=== PATIENT | female | born 1960 | race Caucasian/White ===

== ENCOUNTER 2017-07-22 13:04 | Outpatient (RCR) | payer BC, MEDICAID, SELFPAY ==
[2017-07-22 14:05] VITALS: BP 123/73; PULSE 72; RESP 24; TEMP 36.6; BMI 64.4
--- NOTE | 2017-07-22 14:49 | PCM.WC.HP ---
(1) Leg swelling Status: Chronic Current Visit: Yes Code(s): M79.89 - Other specified soft tissue disorders (2) Edema of both legs Status: Chronic Current Visit: Yes Code(s): R60.0 - Localized edema (3) Lymphedema of lower extremity Status: Chronic Current Visit: Yes Qualifiers: Laterality: bilateral Qualified Code(s): I89.0 - Lymphedema, not elsewhere classified Code(s): I89.0 - Lymphedema, not elsewhere classified (4) Morbid obesity with BMI of 60.0-69.9, adult Status: Chronic Current Visit: Yes Code(s): E66.01 - Morbid (severe) obesity due to excess calories; Z68.44 - Body mass index (BMI) 60.0-69.9, adult (5) Sleep apnea Status: Chronic Current Visit: No Code(s): G47.30 - Sleep apnea, unspecified (6) Limited mobility Status: Chronic Current Visit: Yes Code(s): Z74.09 - Other reduced mobility (7) COPD (chronic obstructive pulmonary disease) Status: Chronic Current Visit: No Qualifiers: COPD type: emphysema Code(s): J44.9 - Chronic obstructive pulmonary disease, unspecified (8) GERD (gastroesophageal reflux disease) Status: Chronic Current Visit: No Code(s): K21.9 - Gastro-esophageal reflux disease without esophagitis (9) Chronic venous insufficiency Status: Chronic Current Visit: Yes Code(s): I87.2 - Venous insufficiency (chronic) (peripheral) (10) Diabetes mellitus Status: Chronic Current Visit: No Qualifiers: Diabetes mellitus type: type 2 Code(s): E11.9 - Type 2 diabetes mellitus without complications (11) Hypertension Status: Chronic Current Visit: No Code(s): I10 - Essential (primary) hypertension (12) Hyperlipidemia Status: Chronic Current Visit: No Code(s): E78.5 - Hyperlipidemia, unspecified (13) Lipodermatosclerosis Status: Chronic Current Visit: Yes Code(s): I83.10 - Varicose veins of unspecified lower extremity with inflammation (14) Hyperpigmentation Status: Chronic Current Visit: Yes Code(s): L81.9 - Disorder of pigmentation, unspecified History of Present Illness Date of Service: 07/22/17 Chief Complaint: Chronic swelling, edema, and lymphedema of the lower extremities, with exudative drainage from the left distal lower extremity History of Wound: This is a morbidly obese, diabetic, 56-year-old female who presents with a history of chronic swelling, edema, and lymphedema in her lower extremities. The patient states that her presenting symptoms have been worse within the last 6 weeks. She has noted exudative drainage from a pinhole in her left lower extremity below the knee, described by the patient has dripping. She claims to sleep with her lower extremities elevated. However, her mobility and activity is extremely limited. She spends long hours each day and an idle sitting position. She is morbidly obese, with a BMI of 64.4, placing her in a class III category. She is attempting to lose weight, and is currently on medication as prescribed by her primary care physician. She claims to have lost 15 pounds within the last several months. She describes compression garments for her lower extremities, which consists of Velcro straps, likely something similar to CircAid garments. However, she has not been using these garments. Furthermore, she has mechanical compression pumps, which she also has not been using. The patient has multiple other medical problems, which will be listed below. She is currently in the midst of a prescription for Keflex, prescribed by her primary care physician, presumably for cellulitis of the lower extremities. Past Medical History Past Medical History: Chronic Problems Leg swelling (Chronic) Edema of both legs (Chronic) Lymphedema of lower extremity (Chronic) Morbid obesity with BMI of 60.0-69.9, adult (Chronic) Sleep apnea (Chronic) Limited mobility (Chronic) COPD (chronic obstructive pulmonary disease) (Chronic) GERD (gastroesophageal reflux disease) (Chronic) Chronic venous insufficiency (Chronic) Diabetes mellitus (Chronic) Hypertension (Chronic) Hyperlipidemia (Chronic) Lipodermatosclerosis (Chronic) Hyperpigmentation (Chronic) Past Medical History: The patient denies a history of myocardial infarction, congestive heart failure, cerebrovascular accident, cancer, renal disease, and thyroid disease. She suffers from morbid obesity. She has a history of sleep apnea, chronic obstructive pulmonary disease/emphysema, gastroesophageal reflux disease, venous insufficiency, diabetes mellitus, hypertension, and hyperlipidemia. Surgical History: - - Patient has had bilateral oophorectomies and hysterectomy. She has had cholecystectomy in the past, as well as appendectomy. Allergies/Adverse Reactions: Allergies albuterol Adverse Reaction (Verified 07/22/17 14:19) Unknown clindamycin Adverse Reaction (Verified 07/22/17 14:19) Unknown Sulfa (Sulfonamide Antibiotics) Adverse Reaction (Verified 07/22/17 14:19) Unknown theophylline Adverse Reaction (Verified 07/22/17 14:19) Unknown Home Medications: Ambulatory Orders Medication Instructions Recorded Acetaminophen [Non-Aspirin Extra 500 mg PO 07/22/17 Strength] Allopurinol 300 mg PO DAILY 07/22/17 Aspirin [Aspirin, Baby] 81 mg PO DAILY@0800 07/22/17 Atenolol [Tenormin (Beta Bernarda)] 100 mg PO DAILY 07/22/17 Baclofen 10 mg PO 07/22/17 Cephalexin [Keflex] 500 mg PO 07/22/17 Gabapentin [Neurontin] 100 mg PO DAILY 07/22/17 Ibuprofen 07/22/17 Lisinopril [Prinivil] 10 mg PO 07/22/17 Omeprazole [Prilosec] DAILY 07/22/17 Phentermine HCl 37.5 mg PO DAILY 07/22/17 Tiotropium [place] [Spiriva 18 MCG] 1 puff INHALATION DAILY 07/22/17 Triamcinolone Acetonide 15 gm TP 07/22/17 - Family History Maternal - - Patient's father at the age of 70 with a history of diabetes mellitus and heart disease. Patient's mother is living, age 78, and healthy, but for morbid obesity. Social History: The patient lives with HER-2 sisters and her mother. She is classified as disabled, and is unemployed. She is single. She quit smoking approximately 10 years ago. She denies use of alcohol. Lives: With Family Smoking Status: Former smoker Tobacco Use: Non-smoker Alcohol: None Drugs: None Review of Systems Constitutional: Denies: Chills, Fever, Weight Change Eyes: Denies: Pain, Vision Change HEENT: Denies: Difficulty Hearing, Difficulty Swallowing, Sinus Congestion Cardiovascular: Denies: Chest Pain, Palpitations Respiratory: Denies: Cough, Shortness of Breath Gastrointestinal: Denies: Diarrhea, Nausea, Vomiting Genitourinary: Denies: Dysuria, Hematuria Endocrine: Denies: Heat/ Cold Intolerance, Polydipsia, Polyuria Hematologic/ Lymphatic: Denies: Easy Bruising, Easy Bleeding - Physical Exam Vital Signs Temp Pulse Resp BP 98 F 72 24 H 123/73 H 07/22/17 14:05 07/22/17 14:05 07/22/17 14:05 07/22/17 14:05 General: Alert, Oriented x3, Cooperative, No apparent distress, Well developed, Well nourished, - - Patient is morbidly obese. HEENT: Atraumatic, PERRLA, EOMI, Normocephalic Oral: Moist Mucosa, No Gingival or Mucosal Lesions/ Ulcerations Neck: Supple, No JVD, Negative Carotid Bruits, No Nodes, No Nuchal Rigidity, Trachea Midline Lungs: Clear to auscultation, Normal air movement, No rhonchi, No wheeze, No rales Cardiovascular: Regular rate, Regular Rhythm, Normal S1, Normal S2, No murmurs Abdomen: Soft, Non Tender, Non-Distended, Obese - Morbidly obese Extremities: No clubbing, No cyanosis, No Calf Tenderness, - - Lower extremities are severely swollen, edematous, and with lymphedema bilaterally. There are no open wounds or ulcerations. There is no evidence of infection or cellulitis. Circumference measurements are documented elsewhere. Hyperpigmentation and lipodermatosclerosis are noted in the gaiter areas bilaterally. Wound Measurements and Assessment WC - Nurse 1 - General Ulcer Measurement Start: 07/22/17 13:38 Freq: Status: Active Protocol: Activity Type Activity Date Activity User E-Sign Co-Sign Detail Recorded Client Recorded Date Recorded By Document 07/22/17 14:05 [facility] [id number] 07/22/17 14:10 [facility] 07/22/17 14:05 Wound Center Nurse 1 [Ulcer Assessment Protocol: EVA.WD.LOC] #1- BLE EDEMA -Combined with other wound No -Date of Last Picture (Recall this 07/22/17 field) -Photo Taken Yes [Edema Assessment] -Lower Limb Edema Present Yes -Right Calf (cm) 48.5 -Right Ankle (cm) 27.5 -Left Calf (cm) 50.1 -Left Ankle (cm) 26.5 WC - Nurse 2 - General Ulcer CM Notes Start: 07/22/17 13:38 Freq: Status: Active Protocol: Activity Type Activity Date Activity User E-Sign Co-Sign Detail Recorded Client Recorded Date Recorded By Document 07/22/17 14:34 [id number] 07/22/17 14:46 07/22/17 14:34 Wound Center Nurse 2 [Procedure/Treatment] #1- BLE EDEMA -Time 14:34 -Correct Patient Yes -Correct Side, Site, Position Yes -Correct Procedure Yes -Procedure Performed No -Bleeding Controlled with NA [See Physician Procedure note for Specifics] Pain Scale: 0-10 Numeric [Pain] -Is Patient Pain Free? Yes Neurological: Cranial nerves II-XII grossly intact, Neuro grossly intact Psych/Mental Status: Normal Affect, Appropriate, Alert and oriented to time, place, person, mood and affect Debridement Note Post-Debridement Measurements/Treatment WC - Nurse 2 - General Ulcer CM Notes Start: 07/22/17 13:38 Freq: Status: Active Protocol: Activity Type Activity Date Activity User E-Sign Co-Sign Detail Recorded Client Recorded Date Recorded By Document 07/22/17 14:34 [id number] 07/22/17 14:46 07/22/17 14:34 Wound Center Nurse 2 #1- BLE EDEMA -Time 14:34 -Correct Patient Yes -Correct Side, Site, Position Yes -Correct Procedure Yes -Procedure Performed No -Bleeding Controlled with NA Pain Scale: 0-10 Numeric Is Patient Pain Free? Yes No debridement was completed today Assessment/Plan Active Problems Leg swelling (Chronic) Edema of both legs (Chronic) Lymphedema of lower extremity (Chronic) Morbid obesity with BMI of 60.0-69.9, adult (Chronic) Limited mobility (Chronic) Chronic venous insufficiency (Chronic) Lipodermatosclerosis (Chronic) Hyperpigmentation (Chronic) Assessment: This is a 56-year-old female with multiple medical problems, as detailed above. She presents with a long-standing history of chronic swelling, edema, and lymphedema in her lower extremities. In recent weeks, she was noted exudative drainage from the pores of the left lower extremity. She is morbidly obese. Her level of activity and mobility are extremely limited. She sits long hours each day. Her lack of activity is such that she is not recruiting the calf and foot muscle pumps necessary for eating venous return. Her swelling and edema appears to be related to her chronic dependency, morbid obesity, and lack of activity. Furthermore, despite the fact that the patient has compression garments and mechanical compression pumps, the patient has failed to use these devices. Plan: Patient has been advised to elevate her lower extremities as much as possible. Elevation is to be to heart level or higher, as much as possible, during sleeping hours as well as during the daytime. She has been advised to refrain from prolonged idle sitting. Activity has been encouraged. Weight loss has also been encouraged. Ultimately, we plan to implement some form of compression to the lower extremities. Initially, however, we are to obtain a venous duplex examination and ankle-brachial indices bilaterally. Once these results are known, we will implement some form of compression to the lower extremities. We are also to obtain routine laboratory studies, including a CBC, comprehensive metabolic profile, serum prealbumin, and hemoglobin A1c. The patient is to return in 1 week for reassessment. She has been encouraged to bring her mechanical compression pumps and her Velcro compression garments, so they can be reviewed and assessed as to the appropriateness for use henceforth. Influenza vaccine was not administered today. The patient is not a smoker. Patient weighs 330 pounds. She stands 5 feet 0 inches tall. Her BMI is 64.4, placing her in a class III category. Weight loss has been strongly encouraged, and she has been encouraged to continue collaborating with her primary care physician in this regard. She indicates that she is currently on medication for weight loss, and has lost 15 pounds within the last several months.
--- NOTE | 2017-07-22 14:59 | HP.PCM_ITS ---
(1) Leg swelling Status: Chronic Current Visit: Yes Code(s): M79.89 - Other specified soft tissue disorders (2) Edema of both legs Status: Chronic Current Visit: Yes Code(s): R60.0 - Localized edema (3) Lymphedema of lower extremity Status: Chronic Current Visit: Yes Qualifiers: Laterality: bilateral Qualified Code(s): I89.0 - Lymphedema, not elsewhere classified Code(s): I89.0 - Lymphedema, not elsewhere classified (4) Morbid obesity with BMI of 60.0-69.9, adult Status: Chronic Current Visit: Yes Code(s): E66.01 - Morbid (severe) obesity due to excess calories; Z68.44 - Body mass index (BMI) 60.0-69.9, adult (5) Sleep apnea Status: Chronic Current Visit: No Code(s): G47.30 - Sleep apnea, unspecified (6) Limited mobility Status: Chronic Current Visit: Yes Code(s): Z74.09 - Other reduced mobility (7) COPD (chronic obstructive pulmonary disease) Status: Chronic Current Visit: No Qualifiers: COPD type: emphysema Code(s): J44.9 - Chronic obstructive pulmonary disease, unspecified (8) GERD (gastroesophageal reflux disease) Status: Chronic Current Visit: No Code(s): K21.9 - Gastro-esophageal reflux disease without esophagitis (9) Chronic venous insufficiency Status: Chronic Current Visit: Yes Code(s): I87.2 - Venous insufficiency ( chronic) (peripheral) (10) Diabetes mellitus Status: Chronic Current Visit: No Qualifiers: Diabetes mellitus type: type 2 Code(s): E11.9 - Type 2 diabetes mellitus without complications (11) Hypertension Status: Chronic Current Visit: No Code(s): I10 - Essential (primary) hypertension (12) Hyperlipidemia Status: Chronic Current Visit: No Code(s): E78.5 - Hyperlipidemia, unspecified (13) Lipodermatosclerosis Status: Chronic Current Visit: Yes Code(s): I83.10 - Varicose veins of unspecified lower extremity with inflammation (14) Hyperpigmentation Status: Chronic Current Visit: Yes Code(s): L81.9 - Disorder of pigmentation , unspecified History of Present Illness Date of Service: 07/22/17 Chief Complaint: Chronic swelling, edema, and lymphedema of the lower extremities, with exudative drainage from the left distal lower extremity History of Wound: This is a morbidly obese, diabetic, 56-year-old female who presents with a history of chronic swelling, edema, and lymphedema in her lower extremities. The patient states that her presenting symptoms have been worse within the last 6 weeks. She has noted exudative drainage from a pinhole in her left lower extremity below the knee, described by the patient has dripping . She claims to sleep with her lower extremities elevated. However, her mobility and activity is extremely limited. She spends long hours each day and an idle sitting position. She is morbidly obese, with a BMI of 64.4, placing her in a class III category. She is attempting to lose weight, and is currently on medication as prescribed by her primary care physician. She claims to have lost 15 pounds within the last several months. She describes compression garments for her lower extremities, which consists of Velcro straps , likely something similar to CircAid garments. However, she has not been using these garments. Furthermore, she has mechanical compression pumps, which she also has not been using. The patient has multiple other medical problems, which will be listed below. She is currently in the midst of a prescription for Keflex, prescribed by her primary care physician, presumably for cellulitis of the lower extremities. Past Medical History Past Medical History: Chronic Problems Leg swelling (Chronic) Edema of both legs (Chronic) Lymphedema of lower extremity (Chronic) Morbid obesity with BMI of 60.0-69.9, adult (Chronic) Sleep apnea (Chronic) Limited mobility (Chronic) COPD (chronic obstructive pulmonary disease) (Chronic) GERD (gastroesophageal reflux disease) (Chronic) Chronic venous insufficiency (Chronic) Diabetes mellitus (Chronic) Hypertension (Chronic) Hyperlipidemia (Chronic) Lipodermatosclerosis (Chronic) Hyperpigmentation (Chronic) Past Medical History: The patient denies a history of myocardial infarction, congestive heart failure, cerebrovascular accident, cancer, renal disease, and thyroid disease. She suffers from morbid obesity. She has a history of sleep apnea, chronic obstructive pulmonary disease/emphysema, gastroesophageal reflux disease, venous insufficiency, diabetes mellitus, hypertension, and hyperlipidemia. Surgical History: - - Patient has had bilateral oophorectomies and hysterectomy. She has had cholecystectomy in the past, as well as appendectomy. Allergies/Adverse Reactions: Allergies albuterol Adverse Reaction (Verified 07/22/17 14:19) Unknown clindamycin Adverse Reaction (Verified 07/22/17 14:19) Unknown Sulfa (Sulfonamide Antibiotics) Adverse Reaction (Verified 07/22/17 14:19) Unknown theophylline Adverse Reaction (Verified 07/22/17 14:19) Unknown Home Medications: Ambulatory Orders Medication Instructions Recorded Acetaminophen [Non-Aspirin Extra 500 mg PO 07/22/17 Strength] Allopurinol 300 mg PO DAILY 07/22/17 Aspirin [Aspirin, Baby] 81 mg PO DAILY@0800 07/22/17 Atenolol [Tenormin (Beta Bernarda)] 100 mg PO DAILY 07/22/17 Baclofen 10 mg PO 07/22/17 Cephalexin [Keflex] 500 mg PO 07/22/17 Gabapentin [Neurontin] 100 mg PO DAILY 07/22/17 Ibuprofen 07/22/17 Lisinopril [Prinivil] 10 mg PO 07/22/17 Omeprazole [Prilosec] DAILY 07/22/17 Phentermine HCl 37.5 mg PO DAILY 07/22/17 Tiotropium Garrison [Spiriva 18 MCG] 1 puff INHALATION DAILY 07/22/17 Triamcinolone Acetonide 15 gm TP 07/22/17 - Family History Maternal - - Patient's father at the age of 70 with a history of diabetes mellitus and heart disease. Patient's mother is living, age 78, and healthy, but for morbid obesity. Social History: The patient lives with HER-2 sisters and her mother. She is classified as disabled, and is unemployed. She is single. She quit smoking approximately 10 years ago. She denies use of alcohol. Lives: With Family Smoking Status: Former smoker Tobacco Use: Non-smoker Alcohol: None Drugs: None Review of Systems Constitutional: Denies: Chills, Fever, Weight Change Eyes: Denies: Pain, Vision Change HEENT: Denies: Difficulty Hearing, Difficulty Swallowing, Sinus Congestion Cardiovascular: Denies: Chest Pain, Palpitations Respiratory: Denies: Cough, Shortness of Breath Gastrointestinal: Denies: Diarrhea, Nausea, Vomiting Genitourinary: Denies: Dysuria, Hematuria Endocrine: Denies: Heat/ Cold Intolerance, Polydipsia, Polyuria Hematologic/ Lymphatic: Denies: Easy Bruising, Easy Bleeding - Physical Exam Vital Signs Temp Pulse Resp BP 98 F 72 24 H 123/73 H 07/22/17 14:05 07/22/17 14:05 07/22/17 14:05 07/22/17 14:05 General: Alert, Oriented x3, Cooperative, No apparent distress, Well developed, Well nourished, - - Patient is morbidly obese. HEENT: Atraumatic, PERRLA, EOMI, Normocephalic Oral: Moist Mucosa, No Gingival or Mucosal Lesions/ Ulcerations Neck: Supple, No JVD, Negative Carotid Bruits, No Nodes, No Nuchal Rigidity, Trachea Midline Lungs: Clear to auscultation, Normal air movement, No rhonchi, No wheeze, No rales Cardiovascular: Regular rate, Regular Rhythm, Normal S1, Normal S2, No murmurs Abdomen: Soft, Non Tender, Non-Distended, Obese - Morbidly obese Extremities: No clubbing, No cyanosis, No Calf Tenderness, - - Lower extremities are severely swollen, edematous, and with lymphedema bilaterally. There are no open wounds or ulcerations. There is no evidence of infection or cellulitis. Circumference measurements are documented elsewhere. Hyperpigmentation and lipodermatosclerosis are noted in the gaiter areas bilaterally. Wound Measurements and Assessment WC - Nurse 1 - General Ulcer Measurement Start: 07/22/17 13:38 Freq: Status: Active Protocol: Activity Type Activity Date Activity User E-Sign Co-Sign Detail Recorded Client Recorded Date Recorded By Document 07/22/17 14:05 [facility] [id number] 07/22/17 14:10 [facility] 07/22/17 14:05 [facility] Nurse 1 [Ulcer Assessment Protocol: EVA.WD.LOC] #1- BLE EDEMA -Combined with other wound No -Date of Last Picture (Recall this 07/22/17 field) -Photo Taken Yes [Edema Assessment] -Lower Limb Edema Present Yes -Right Calf (cm) 48.5 -Right Ankle (cm) 27.5 -Left Calf (cm) 50.1 -Left Ankle (cm) 26.5 WC - Nurse 2 - General Ulcer CM Notes Start: 07/22/17 13:38 Freq: Status: Active Protocol: Activity Type Activity Date Activity User E-Sign Co-Sign Detail Recorded Client Recorded Date Recorded By Document 07/22/17 14:34 [id number] 07/22/17 14:46 07/22/17 14:34 W[facility] Center Nurse 2 [Procedure/Treatment] #1- BLE EDEMA -Time 14:34 -Correct Patient Yes -Correct Side, Site, Position Yes -Correct Procedure Yes -Procedure Performed No -Bleeding Controlled with NA [See Physician Procedure note for Specifics] Pain Scale: 0-10 Numeric [Pain] -Is Patient Pain Free? Yes Neurological: Cranial nerves II-XII grossly intact, Neuro grossly intact Psych/Mental Status: Normal Affect, Appropriate, Alert and oriented to time, place, person, mood and affect Debridement Note Post-Debridement Measurements/Treatment WC - Nurse 2 - General Ulcer CM Notes Start: 07/22/17 13:38 Freq: Status: Active Protocol: Activity Type Activity Date Activity User E-Sign Co-Sign Detail Recorded Client Recorded Date Recorded By Document 07/22/17 14:34 [id number] 07/22/17 14:46 07/22/17 14:34 W[facility] Center Nurse 2 #1- BLE EDEMA -Time 14:34 -Correct Patient Yes -Correct Side, Site, Position Yes -Correct Procedure Yes -Procedure Performed No -Bleeding Controlled with NA Pain Scale: 0-10 Numeric Is Patient Pain Free? Yes No debridement was completed today Assessment/Plan Active Problems Leg swelling (Chronic) Edema of both legs (Chronic) Lymphedema of lower extremity (Chronic) Morbid obesity with BMI of 60.0-69.9, adult (Chronic) Limited mobility (Chronic) Chronic venous insufficiency (Chronic) Lipodermatosclerosis (Chronic) Hyperpigmentation (Chronic) Assessment: This is a 56-year-old female with multiple medical problems, as detailed above. She presents with a long-standing history of chronic swelling, edema, and lymphedema in her lower extremities. In recent weeks, she was noted exudative drainage from the pores of the left lower extremity. She is morbidly obese. Her level of activity and mobility are extremely limited. She sits long hours each day. Her lack of activity is such that she is not recruiting the calf and foot muscle pumps necessary for eating venous return. Her swelling and edema appears to be related to her chronic dependency, morbid obesity, and lack of activity. Furthermore, despite the fact that the patient has compression garments and mechanical compression pumps, the patient has failed to use these devices. Plan: Patient has been advised to elevate her lower extremities as much as possible. Elevation is to be to heart level or higher, as much as possible, during sleeping hours as well as during the daytime. She has been advised to refrain from prolonged idle sitting. Activity has been encouraged. Weight loss has also been encouraged. Ultimately, we plan to implement some form of compression to the lower extremities. Initially, however, we are to obtain a venous duplex examination and ankle-brachial indices bilaterally. Once these results are known, we will implement some form of compression to the lower extremities. We are also to obtain routine laboratory studies, including a CBC , comprehensive metabolic profile, serum prealbumin, and hemoglobin A1c. The patient is to return in 1 week for reassessment. She has been encouraged to bring her mechanical compression pumps and her Velcro compression garments, so they can be reviewed and assessed as to the appropriateness for use henceforth. Influenza vaccine was not administered today. The patient is not a smoker. Patient weighs 330 pounds. She stands 5 feet 0 inches tall. Her BMI is 64.4, placing her in a class III category. Weight loss has been strongly encouraged, and she has been encouraged to continue collaborating with her primary care physician in this regard. She indicates that she is currently on medication for weight loss, and has lost 15 pounds within the last several months.
--- NOTE | 2017-07-23 12:19 | WC ---
Patient called [facility] she will not be returning, and has cancelled her blood work and vascular studies. The seeping from her left lower leg has stopped and her leg is healed. [facility] Lab also called confirming the patient cancelled her appointment for same. Dr. Puentes made aware. PAtient discharged from the Wound Center.
== END 2017-07-31 23:59 ==
LOC: WC 13:04
PROVIDERS: Visit Provider Surgery
DX: I83.12 Varicose veins of left lower extremity with inflammation (principal); I83.11 Varicose veins of right lower extremity with inflammation; E66.01 Morbid (severe) obesity due to excess calories; Z68.44 Body mass index [BMI] 60.0-69.9, adult; Z71.3 Dietary counseling and surveillance; M79.89 Other specified soft tissue disorders; R60.0 Localized edema; I89.0 Lymphedema, not elsewhere classified; G47.30 Sleep apnea, unspecified; J44.9 Chronic obstructive pulmonary disease, unspecified; K21.9 Gastro-esophageal reflux disease without esophagitis; E11.9 Type 2 diabetes mellitus without complications; I10 Essential (primary) hypertension; E78.5 Hyperlipidemia, unspecified; Z79.899 Other long term (current) drug therapy; Z79.82 Long term (current) use of aspirin; Z87.891 Personal history of nicotine dependence
CPT/HCPCS: 99202; G0463